=== PATIENT | female | born 1945 | race Caucasian/White ===

== ENCOUNTER → 2019-12-26 | Outpatient (CLI) | payer MEDICARE, OTHER ==
[~2019-12-26] MED LIST: AMLO10TA8 PO; BENA40TA3 PO; CHOL10003 PO; HYDR25TA6 PO; LORA-702 PO; MULTIVITAMIN; NIAC-27 PO; OMEP-110 PO
== END | disposition home or self-care (01) ==
LOC: STAR 16:10
PROVIDERS: ATTEND Surgery Surgery of the Hand
DX: Z20.828 Contact with and (suspected) exposure to other viral communicable diseases (principal)
CPT/HCPCS: 36415; 87635

== ENCOUNTER 2019-12-30 07:06 | Day surgery (SDC) | payer MEDICARE, OTHER ==
[~2019-12-30] VITALS: Ht 162.6 cm; Wt 92.0 kg
[2019-12-30] MEDS ORDERED: CHLORHEXIDINE 15 ML UDC MM STA (07:33)
[2019-12-30] MEDS ORDERED: OMEP-110 PO (07:40)
[2019-12-30] MEDS ORDERED: CHOL10003 PO (07:40)
[2019-12-30] MEDS ORDERED: AMLO-211 PO (07:40)
[2019-12-30] MEDS ORDERED: NIAC-27 PO (07:40)
[2019-12-30] MEDS ORDERED: BENA40TA3 PO (07:40)
[2019-12-30] MEDS ORDERED: MULTIVITAMIN (07:40)
[2019-12-30] MEDS ORDERED: LORA-702 PO (07:40)
[2019-12-30] MEDS ORDERED: HYDR25TA6 PO (07:40)
[2019-12-30] MEDS ORDERED: CHLORHEXIDINE 15 ML UDC ONE (07:46)
[2019-12-30] MEDS ORDERED: LACTATED RINGERS 1,000 ML IV SCH (08:00)
[2019-12-30 08:06] VITALS: BP 127/86
[2019-12-30] MEDS ORDERED: MIDAZOLAM 1 MG/ML, 2ML ONE (08:14)
[2019-12-30] MEDS ORDERED: FENTANYL PF 100 MCG/2ML ONE (08:14)
[2019-12-30] MEDS ORDERED: BUPIVACAINE/PF 0.5% ONE ×2 (08:33→08:35)
[2019-12-30] MEDS ORDERED: LIDOCAINE 1%, 10ML INFIL ONE (08:58)
== END 2019-12-30 10:25 | disposition home or self-care (01) ==
LOC: OUT 07:06
PROVIDERS: ATTEND Surgery Surgery of the Hand
DX: M67.442 Ganglion, left hand (principal); M25.742 Osteophyte, left hand; I10 Essential (primary) hypertension; M19.90 Unspecified osteoarthritis, unspecified site; Z79.1 Long term (current) use of non-steroidal anti-inflammatories (NSAID); Z79.899 Other long term (current) drug therapy; Z85.3 Personal history of malignant neoplasm of breast; Z88.8 Allergy status to other drugs, medicaments and biological substances
CPT/HCPCS: 26160; 93005; J7120; J2250; J3010